=== PATIENT | female | born 1955 | race Caucasian/White ===

== ENCOUNTER → 2016-08-31 | Day surgery (SDC) | payer OTHER ==
--- NOTE | 2016-08-27 16:32 | History & Physical Pre-Op ---
General Information and HPI History of Present Illness: Blaire is a 61-year-old female with a long-standing and worsening complaint of left and right heel pain. The patient has undergone an extended course of conservative care, including shoe gear and activity modification, rest, immobilization and courses of NSAIDs. None of this is yielded her any significant relief. The patient presents today for preoperative surgical consultation. Past History Medical History Gastrointestinal: GERD Endocrine: hypothyroidism Surgical History Pertinent Surgical History: Review of Systems Review of Systems: Review of systems unremarkable except for that noted in history of present illness Exam & Diagnostic Data Physical Exam: Lungs clear bilaterally. Heart sounds rate and rhythm regular. Lower extremity physical exam demonstrates intact pedal pulses bilaterally. Pulses dorsalis pedis and posterior tibial arteries are palpable bilaterally. Patient without any sensory motor deficits. Deep tendon reflexes grossly intact. Patient noted to have significantly pain with palpation to the plantar medial left and right heels. Negative Tinel sign noted with percussion the posterior tibial nerve bilaterally. Ankle range of motion noted to be diminished, especially in dorsiflexion. Assessment/Plan Assessment/Plan: Plantar fasciitis and gastrocnemius equinus bilaterally. A lengthy discussion reviewing both surgical and conservative options was held the patient at bedside and the patient elects to go forward with surgery despite the risks. As Ranked By This Provider Problem List: 1. Plantar fascial fibromatosis Attending MD Review Statement Attending Statement Attending MD Statement: examined this patient
[~2016-08-31] VITALS: Ht 154.9 cm; Wt 86.2 kg
[~2016-08-31] MED LIST: CYMBALTA60 M1 PO; FOLIC ACID1 M1 PO; LIOTHYRONINE SO5 MC1 PO; METHOTREXATE2.5 M2 PO; PROTONIX40 M3 PO; SYNTHROID150 MCG PO
--- NOTE | 2016-08-31 08:42 | Operative Report ---
Operative/Inv Procedure Report Surgery Date: 08/31/16 Name of Procedure: 1 gastrocnemius recession right 2 gastrocnemius recession left 3 plantar fasciotomy right 4 plantar fasciotomy left 5 plantar fasciectomy right 6 plantar fasciectomy left 7 intraoperative administration of ankle block anesthesia Pre-Operative Diagnosis: 1 gastrocnemius equinus right 2 gastrocnemius equinus left 3 chronic plantar fasciosis right 4 chronic plantar fasciosis left Post-Operative Diagnosis: The same Estimated Blood Loss: scant Surgeon/Ornamental Brick Installer: SOFIE EARLY DPM Anesthesia: moderate sedation, block Operative/Procedure Note Note: After obtaining informed consent the patient was brought to the operating room and placed on the operating table in supine position. The patient isn't securely fastened to the operating table utilizing safety belt. After administration of IV sedation, 10 mL of 0.5% Marcaine plain was infiltrated about the patient's left and right ankles. 2 well-padded calf tourniquets were placed about the patient's left and right upper cast. 2 g of Ancef were delivered intravenously times one dose. Left right lower extremities within scrubbed prepped and draped in usual aseptic manner. The right lower extremity was elevated to examine to limb, which point the calf tourniquet was inflated 250 mmHg. Attention directed to the distal right leg, where a linear incision was made 2 fingerbreadths distal to the medial have a gastrocnemius muscle. Dissection was then carried down to the medial margin of the gastroc fascia, where an interval was developed between the T9 of the gastroc fascia. The sural nerve was identified and protected. A gastrocnemius recession was then performed. The deep tissues approximated with 4-0 Vicryl and the skin edges reapproximated 4-0 nylon. Attention was then directed to the distal medial right foot, where a grid pattern was marked out at 5 mm intervals along the medial slip of the plantar fascia. Portals were developed with a sterile 62 K wire and the tissue was then ablated with 417 radiofrequency energy utilizing the Keldelice micro-ablator. Dissection was then carried down to the medial margin of the fascia which was released from its origin on the medial tubercle calcaneal tuberosity. The skin incisions were then closed with 4-0 nylon and dressed with [place] dressings and Coban. The tourniquet was then released and the left lower extremity was elevated to examine to limb, which point the calf tourniquet was inflated 250 mmHg. Answers directed to the distal medial left leg, where a linear incision was made 2 fingerbreadths distal to the medial have a gastrocnemius muscle. The dissection was then carried down to the medial margin of the gastroc fascia where an interval was developed between the peritenon and the fascia. The sural nerve was identified and protected. A gastrocnemius recession was then performed. The deep tissues reapproximated 4-0 Vicryl skin is reprepped for nylon. Attention was then directed to the medial left foot, where a grid pattern was marked out at 5 mm intervals overlying the origin of the medial slip of the plantar fascia. Portals were then developed with a sterile 62 K wire. The tissue was then ablated with 4 Amado of radiofrequency energy along this marked out region. Utilizing the Keldelice micro- ablator. The dissection was then carried down to the medial margin of the plantar fascia which was released from the medial tubercle calcaneal tuberosity. Skin is sutured closure 4-0 nylon and dressed with [place] dressings and Coban. The patient was noted to tolerate both procedure and anesthesia well and the patient was transported from the operating room to recovery with vital signs stable best assess intact all digits bilateral feet.
== END ==
LOC: STS 00:45
DX: M21.6X2 Other acquired deformities of left foot (principal); M21.6X1 Other acquired deformities of right foot; M72.2 Plantar fascial fibromatosis; E03.9 Hypothyroidism, unspecified; K21.9 Gastro-esophageal reflux disease without esophagitis
CPT/HCPCS: 93005; 93010; J0131; J0690; J2001; J2250